=== PATIENT | male | born 1990 | race African-American/Black ===

== ENCOUNTER 2019-06-28 18:55 | Emergency (ER) | payer OTHER ==
[~2019-06-28] VITALS: Ht 170.2 cm; Wt 89.0 kg
[2019-06-29] MEDS ORDERED: KETOROLAC 60MG/2ML VIAL IM ONE (01:00)
[2019-06-29 05:15] VITALS: BP 109/68
== END 2019-06-29 05:40 | disposition home or self-care (01) ==
LOC: ER 18:55
DX: I82.401 Acute embolism and thrombosis of unspecified deep veins of right lower extremity (principal); M79.18 Myalgia, other site; J45.909 Unspecified asthma, uncomplicated
CPT/HCPCS: 93971; 96372; 99284; J1885